=== PATIENT | female | born 2005 | race Caucasian/White ===

== ENCOUNTER → 2023-11-25 | Outpatient (CLI) | payer OTHER ==
[~2023-11-25] MED LIST: ACET325UDC PO; ARIP10 PO; CEPH125SU PO; CLON.1 PO; FISH1000 PO; HYDHCL25 PO; IBUP100S PO; MELA3 PO; SERT50 PO; SULTRIEL PO; TYLENOL
[2023-11-25 12:28] LABS: Candida Group, PCR NOT DETECTED (NOT DETECT); Candida glabrata-krusei, PCR NOT DETECTED (NOT DETECT)
[2023-11-25 12:29] LABS: Bacterial Vaginosis PCR Positive (NEGATIVE)
== END | disposition home or self-care (01) ==
LOC: LAB SHORT 10:15
PROVIDERS: Registered Nurse Community Health
DX: N89.8 Other specified noninflammatory disorders of vagina (principal); R30.0 Dysuria
CPT/HCPCS: 87077; 87086; 87186; 87481; 87661; 87801

== ENCOUNTER → 2023-11-26 | Outpatient (CLI) | payer OTHER ==
[2023-11-28 02:20] LABS: HSV 1 GLYCOPROTEIN G AB, IGG 0.14 IV (<=0.89); HSV 2 GLYCOPROTEIN G AB, IGG 0.06 IV (<=0.89)
[2023-11-28 08:49] LABS: HIV 1,2 COMBO ANTIGEN/ANTIBODY Negative (Negative)
[2023-11-30 19:00] LABS: APTIMA MEDIA TYPE Urine; C. TRACHOMATIS BY TMA Negative (Negative); N. GONORRHOEAE BY TMA Negative (Negative); SPECIMEN SOURCE Urine; T. VAGINALIS BY TMA Negative (Negative)
== END ==
LOC: LAB SHORT 10:28 → LAB 10:28
PROVIDERS: Nurse Practitioner Family
DX: R30.0 Dysuria (principal); Z72.51 High risk heterosexual behavior; R39.89 Other symptoms and signs involving the genitourinary system
CPT/HCPCS: 86592; 86695; 86696; 87086; 87389; 87491; 87591; 87661

== ENCOUNTER → 2024-01-09 | Outpatient (CLI) | payer OTHER ==
[2024-01-10 15:45] LABS: HEPATITIS B SURFACE ANTIGEN Negative (Negative)
[2024-01-10 16:24] LABS: HEPATITIS C AB CIA INTERP Negative (Negative); HEPATITIS C ANTIBODY CIA INDEX 0.04 IV
[2024-01-10 17:08] LABS: HIV 1,2 COMBO ANTIGEN/ANTIBODY Negative (Negative)
[2024-01-11 13:26] LABS: HSV 1 SUBTYPE BY PCR Not Detected; HSV 2 SUBTYPE BY PCR Not Detected; HSV SUBTYPE SOURCE Blood
[2024-01-11 20:16] LABS: APTIMA MEDIA TYPE MultiTest Swab; C. TRACHOMATIS BY TMA Negative (Negative); N. GONORRHOEAE BY TMA Negative (Negative); SPECIMEN SOURCE Vaginal; T. VAGINALIS BY TMA Negative (Negative)
== END ==
LOC: LAB SHORT 11:11 → LAB 11:11
PROVIDERS: Registered Nurse Community Health
DX: Z72.51 High risk heterosexual behavior (principal)
CPT/HCPCS: 86592; 86803; 87340; 87389; 87491; 87529; 87591; 87661

== ENCOUNTER → 2024-03-19 | Outpatient (CLI) | payer OTHER ==
[2024-03-20 16:30] LABS: HIV 1,2 COMBO ANTIGEN/ANTIBODY Negative (Negative)
[2024-03-20 17:18] LABS: HEPATITIS C AB CIA INTERP Negative (Negative); HEPATITIS C ANTIBODY CIA INDEX 0.03 IV
[2024-03-21 15:55] LABS: APTIMA MEDIA TYPE MultiTest Swab; C. TRACHOMATIS BY TMA Negative (Negative); N. GONORRHOEAE BY TMA Negative (Negative); SPECIMEN SOURCE Vaginal
[2024-03-21 16:00] LABS: APTIMA MEDIA TYPE MultiTest Swab; C. TRACHOMATIS BY TMA Negative (Negative); N. GONORRHOEAE BY TMA Negative (Negative); SPECIMEN SOURCE Pharynx
[2024-03-21 16:48] LABS: HEPATITIS B SURFACE ANTIGEN Negative (Negative)
== END ==
LOC: LAB SHORT 11:36 → LAB 11:36
PROVIDERS: Registered Nurse Community Health
DX: Z11.3 Encounter for screening for infections with a predominantly sexual mode of transmission (principal); Z20.2 Contact with and (suspected) exposure to infections with a predominantly sexual mode of transmission
CPT/HCPCS: 86592; 86803; 87340; 87389; 87491; 87591

== ENCOUNTER 2025-04-20 16:34 | Emergency (ER) | payer OTHER ==
[~2025-04-20] VITALS: Ht 177.8 cm; Wt 99.8 kg
[2025-04-20 16:46] VITALS: BP 121/101
[2025-04-20] MEDS ORDERED: CYCL10 PO ×2 (16:50→19:26)
[2025-04-20] MEDS ORDERED: Buspirone HCl5 MG PO (16:51)
[2025-04-20] MEDS ORDERED: Ketorolac Tromethamine 30mg Vial IM ONE (17:55)
[2025-04-20] MEDS ORDERED: Lidocaine 4% 1 Patch TOP ONE (18:00)
[2025-04-20] MEDS ORDERED: LIDO700A20 TOP (19:26)
[2025-04-20] MEDS ORDERED: IBU600 M1 PO (19:26)
== END 2025-04-20 19:30 | disposition home or self-care (01) ==
LOC: ER 16:34
DX: M54.50 Low back pain, unspecified (principal); G89.29 Other chronic pain; Z79.899 Other long term (current) drug therapy; Z59.89 Other problems related to housing and economic circumstances
CPT/HCPCS: 36415; 84703; 96372; 99282-25; A9270; J1885